=== PATIENT | female | born 1960 | race Caucasian/White ===

== ENCOUNTER 2019-09-29 10:09 | Day surgery (SDC) | payer MEDICAID ==
[~2019-09-29] VITALS: Ht 160 cm; Wt 82.7 kg
[2019-09-29 11:20] VITALS: BP 127/71; PULSE 88; TEMP 97.3
[2019-09-29] MEDS ORDERED: GLUCOPHAGE1000 MG PO (11:31)
[2019-09-29] MEDS ORDERED: TEGRETOL 1100 MG/TAB PO (11:32)
[2019-09-29] MEDS ORDERED: ACTOS 15MG TAB15 MG PO (11:32)
[2019-09-29] MEDS ORDERED: ELAVIL100 MG PO (11:33)
[2019-09-29] MEDS ORDERED: SEROQUEL300 MG PO (11:34)
[2019-09-29] MEDS ORDERED: ZOCOR 20MG20 MG PO (11:35)
[2019-09-29] MEDS ORDERED: BUSPAR10 MG PO (11:35)
[2019-09-29] MEDS ORDERED: PRINIVIL20 MG PO (11:36)
[2019-09-29] MEDS ORDERED: HCTZ12.5TAB PO (11:36)
[2019-09-29] MEDS ORDERED: TIROSINT100 MC1 PO (11:37)
[2019-09-29] MEDS ORDERED: AMBIEN CR6.25 MG PO (11:38)
[2019-09-29] MEDS ORDERED: BUTALBITAL ACET1 CAP PO (11:39)
[2019-09-29] MEDS ORDERED: ASPIRIN 81M81 MG/TA2 PO (11:40)
[2019-09-29 14:45] VITALS: TEMP 99
[2019-09-29] MEDS ORDERED: MOTRIN 600600 MG/TAB PO (14:55)
[2019-09-29] MEDS ORDERED: NORCO 325 MG-51 TAB PO (14:55)
[2019-09-29 15:20] VITALS: BP 134/73; PULSE 102
--- NOTE | 2019-09-29 15:20 | NUR ---
Patient returns to room 6 per cart from PACU and is awake and alert. On oxygen at 2L per nasal cannula. Temp 97.7 and sats 95%. Scope sites x5 on abdomen clean and dry and covered with funez set. IV fluids infusing and site is free of redness. Siderails up x2 and call light in reach. Denies pain or nausea. Taking ice chhips. States that she is wanting to go home soon so she can get her prescriptions filled in [place] and there are not familiar in [place].
[2019-09-29 15:35] VITALS: BP 151/78; PULSE 100
--- NOTE | 2019-09-29 15:35 | NUR ---
Continues to take occasional ice chip.
[2019-09-29] MEDS ORDERED: ZOFRAN ODT4 MG PO (15:39)
[2019-09-29 15:40] VITALS: BP 158/82; PULSE 98
--- NOTE | 2019-09-29 15:40 | NUR ---
Room air sats 97%. Denies nausea. States that her abdomen feels sore but is tolerable.
[2019-09-29 15:55] VITALS: BP 157/68; PULSE 100
--- NOTE | 2019-09-29 15:55 | NUR ---
Eating jello and sipping on water. States that she feels well enough to go home.
--- NOTE | 2019-09-29 16:04 | NUR ---
Medicated with [place] 5mg one tab in preparation for car ride home.
--- NOTE | 2019-09-29 16:05 | NUR ---
Assisted up to the bathroom and gait is steady with one person assist. Continues to have some vertigo that was present on admission.
--- NOTE | 2019-09-29 16:15 | NUR ---
Patient dresses self. IV discontinued and dresses self. Given dismissal instructions and voices understanding of these. Provided scripts for Mari Velasquez, and Escobar. Instructed the office will her on 10/11/19 for follow up on the phone.
--- NOTE | 2019-09-29 16:20 | NUR ---
Patient dismissed to home driven by spouse and taken to the front door per wheelchair and assisted into truck with dismissal instructions in hand.
== END 2019-09-29 16:20 | disposition home or self-care (01) ==
LOC: SDCO 10:09
DX: K80.10 Calculus of gallbladder with chronic cholecystitis without obstruction (principal); Z79.82 Long term (current) use of aspirin; E78.5 Hyperlipidemia, unspecified; F32.9 Major depressive disorder, single episode, unspecified; Z86.73 Personal history of transient ischemic attack (TIA), and cerebral infarction without residual deficits; F41.0 Panic disorder [episodic paroxysmal anxiety]; F48.9 Nonpsychotic mental disorder, unspecified; I10 Essential (primary) hypertension; G51.0 Bell's palsy; E11.9 Type 2 diabetes mellitus without complications; Z79.84 Long term (current) use of oral hypoglycemic drugs; Z79.899 Other long term (current) drug therapy; R56.9 Unspecified convulsions; E07.9 Disorder of thyroid, unspecified
CPT/HCPCS: A4216; J0690; J1100; J1885; J2405; J2704; J3010; J7030